=== PATIENT | male | born 1975 | race Two or more races ===

== ENCOUNTER 2017-12-06 10:28 | Emergency (ER) | payer SELFPAY ==
[~2017-12-06] VITALS: Ht 170.2 cm; Wt 78.5 kg
[2017-12-06] MEDS ORDERED: LORAZEPAM 1 MG TABLET PO ONE (11:00)
[2017-12-06] MEDS ORDERED: LORAZEPAM 1 MG TABLET ONE (11:04)
--- NOTE | 2017-12-06 11:05 | NUR ---
PT REC'D TO ER C/O ANXIETY WAS HERE FEW DAYS AGO . WITH SAME STRESS AND ANXIOUS AWAITING EVALUATION BY ER PROVIDER.
--- NOTE | 2017-12-06 11:11 | NUR ---
ATIVAN PO GIVEN PER MD ORDER GIVEN POS TOLERATING WELL
--- NOTE | 2017-12-06 11:19 | NUR ---
Patient discharged to home in stable condition. Written and verbal after care instructions given. Patient verbalizes understanding of instruction.
[2017-12-06 11:45] VITALS: BP 135/135
== END 2017-12-06 11:46 | disposition home or self-care (01) ==
LOC: ER 10:29
DX: F41.9 Anxiety disorder, unspecified (principal); F32.9 Major depressive disorder, single episode, unspecified; F42.8 Other obsessive-compulsive disorder; Z60.2 Problems related to living alone
CPT/HCPCS: 93005; 99284; A4606; Z7610